=== PATIENT | male | born 1980 | race African-American/Black ===

== ENCOUNTER 2016-08-21 03:59 | Emergency (ER) | payer OTHER ==
--- NOTE | ~2016-08-21 | EKG ---
PATIENT: ALEJANDRO AMADOR UNIT #: [id number] Ventricular Rate: 73 BPM Atrial Rate: 73 BPM P-R Interval: 224 ms QRS Duration: 142 ms Q-T Interval: 404 ms QTC Calculation(Bezet): 445 ms P [place]: 72 degrees Calculated R [place]: -97 degrees Calculated T [place]: 69 degrees Diagnosis Line: Sinus rhythm with 1st degree A-V block Diagnosis Line: (RBBB and left anterior fascicular block) Diagnosis Line: Non-specific intra-ventricular conduction block Diagnosis Line: Abnormal ECG Diagnosis Line: No previous ECGs available Diagnosis Line: Confirmed by IRAIDA RITCHIE MD ([id number]) on 08/22/2016 Diagnosis Line: 7:47:16 PM INTERPRETING MD: ERMA RODRIGUEZ
--- NOTE | ~2016-08-21 | CR72 ---
[facility] A Service of [facility] & [facility] / [facility] RADIOLOGY TEXT RESULTS PATIENT: ALEJANDRO AMADOR LOCATION: [facility] : [birth year] UNIT #: [id number] AGE: [address]: DERRICK MCLAUGHLIN APRN SEX: M ORDER DR: [id number] [facility] [address] [place], [place] [address] [id number] MR#: [id number] #: [id number] NAME: ALEJANDRO AMADOR : 1980 SEX: M STUDY DATE/TIME: 08/21/2016 03:32 UNIT: [facility] ROOM: STUDY DESCRIPTION: CR Chest Single View Portable Attending Physician: Derrick Mclaughlin Aprn Ordering Physician: Derrick Mclaughlin Aprn Primary Care Physician: No Primary Care Physician MEDICAL IMAGING REPORT This report is preliminary unless electronic signature is present EXAM Portable chest, 08/21 at 03:32. INDICATIONS Chest pain and left arm pain since 2 o'clock this morning. History of smoking. FINDINGS AP portable chest is compared with 08/22/2015. Cardiac and mediastinal contours are normal. The lungs remain clear. No pneumothorax. Pacing leads are unchanged. IMPRESSION No active disease and no interval change. Dictated by... Rolando Francis Jr., M.D. THIS IS AN ELECTRONICALLY VERIFIED REPORT Rolando Francis Jr., M.D. at 08/21/2016 9:25 PM PIO/malgorzata TD: 08/21/2016 09:43 JOB #: [id number] MEDICAL IMAGING REPORT Page 1 of 1 COPY
[2016-08-21 03:15] LABS: BASOPHIL# 0.1 X10e3 (0-0.3); BASOPHIL% 1.5 % (0-2.5); EOSINOPHIL# 0.3 X10e3 (0-0.7); EOSINOPHIL% 3.9 % (0.0-7.0); HEMATOCRIT 39.8 % (38.0-50.0); HEMOGLOBIN 13.7 gm/dL (13.0-16.0); LYMPHOCYTE% 11.8 % (17.0-45.0); MEAN CELL VOLUME 94.2 FL (83-96); MEAN CORPUSCULAR HEMOGLOBIN 32.4 PG (28-34); MEAN CORPUSCULAR HGB CONC 34.4 g/dL (30-36); MEAN PLATELET VOLUME 7.2 FL (6.5-11.5); MONOCYTE# 0.7 X10e3 (0-1.0); MONOCYTE% 8.4 % (3.0-12.0); NEUTROPHIL# 6.2 X10e3 (1.5-7.1); NEUTROPHIL% 74.4 % (40-75); PLATELET COUNT 373 X10e3 (140-420); RED BLOOD COUNT 4.22 X10e (3.90-5.60); RED CELL DISTRIBUTION WIDTH 12.3 % (11.0-15.5); WHITE BLOOD COUNT 8.4 X10e3 (4.0-10.5)
[2016-08-21 03:16] LABS: DIFF IND NO
[2016-08-21 03:28] LABS: POC - CKMB 1.6 ng/mL (0.0-7.9); POC - TROPONIN <0.05 ng/mL (<=0.05)
[2016-08-21 03:38] LABS: ALBUMIN SERUM 4.2 g/dL (3.5-5.0); BILIRUBIN, DIRECT 0.2 mg/dL (0.0-0.2); BILIRUBIN,INDIRECT 0.9 mg/dL (0.0-0.9); BILIRUBIN,TOTAL 1.1 mg/dL (0.2-2.0); GLOM FILT RATE Estimated 112.5 mL/min (>60); POTASSIUM 3.6 mmol/L (3.5-5.1); PROTEIN TOTAL SERUM 7.3 g/dL (6.0-8.3)
[~2016-08-21 03:59] MED LIST: MOBIC PO; NO MEDICATIONS; PREDNISONE PO; PROVENTIL17 GM IH
[2016-08-21 04:58] LABS: AMPHETAMINE POS (NEG); BARBITURATES NEG (NEG); BENZODIAZEPINES NEG (NEG); COCAINE NEG (NEG); MARIJUANA POS (NEG); OPIATES NEG (NEG); TRICYCLIC ANTIDEPRESSANTS NEG (NEG); U METHADONE NEG (NEG)
== END 2016-08-21 05:25 | disposition home or self-care (01) ==
LOC: CED 03:59
PROVIDERS: Nurse Practitioner Family
DX: R06.2 Wheezing (principal); F15.10 Other stimulant abuse, uncomplicated; F12.10 Cannabis abuse, uncomplicated; R20.2 Paresthesia of skin; M79.602 Pain in left arm; J45.909 Unspecified asthma, uncomplicated; F17.210 Nicotine dependence, cigarettes, uncomplicated
CPT/HCPCS: 36415; 71010; 80048; 80076; 80307; 82553; 84484; 85025; 93005; 94640; 99283

== ENCOUNTER 2016-10-21 11:22 | Emergency (ER) | payer OTHER ==
--- NOTE | ~2016-10-21 | EKG ---
PATIENT: ALEJANDRO AMADOR UNIT #: [id number] Ventricular Rate: 69 BPM Atrial Rate: 69 BPM P-R Interval: 238 ms QRS Duration: 132 ms Q-T Interval: 418 ms QTC Calculation(Bezet): 447 ms P [place]: 79 degrees Calculated R [place]: -171 degrees Calculated T [place]: 64 degrees Diagnosis Line: Sinus rhythm with 1st degree A-V block Diagnosis Line: Possible Left atrial enlargement Diagnosis Line: Right superior axis deviation Diagnosis Line: Non-specific intra-ventricular conduction block Diagnosis Line: Abnormal ECG Diagnosis Line: When compared with ECG of 21-AUG-2016 03:20, Diagnosis Line: Nonspecific T wave abnormality now evident in Diagnosis Line: Anterior leads Diagnosis Line: Confirmed by JUDSON OCHOA MD ([id number]) on Diagnosis Line: 10/22/2016 9:06:55 PM INTERPRETING MD: ZORAIDA
== END 2016-10-21 13:40 | disposition home or self-care (01) ==
LOC: CED 11:22
DX: R00.2 Palpitations (principal)
CPT/HCPCS: 93005; 99284